=== PATIENT | female | born 1985 ===

== ENCOUNTER 2017-06-13 09:49 | Outpatient (CLI) | payer OTHER ==
[~2017-06-13] VITALS: Ht 160 cm; Wt 68.0 kg
== END 2017-06-13 10:10 | disposition home or self-care (01) ==
LOC: OFIC 805 09:49
DX: J32.8 Other chronic sinusitis (principal); J31.0 Chronic rhinitis; H92.02 Otalgia, left ear

== ENCOUNTER 2017-08-11 10:17 | Outpatient (CLI) | payer OTHER ==
[~2017-08-11] VITALS: Ht 152.4 cm; Wt 68.0 kg
== END 2017-08-11 10:30 | disposition home or self-care (01) ==
LOC: OFIC 805 10:17
DX: J30.89 Other allergic rhinitis (principal); H92.02 Otalgia, left ear; H83.8X2 Other specified diseases of left inner ear